=== PATIENT | female | born 2000 | race Hispanic/Latino ===

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

== ENCOUNTER → 2021-03-28 | Outpatient (CLI) | payer OTHER, SELFPAY ==
--- NOTE | 2021-03-28 15:49 | REP ---
INDICATION: R76.11 PPD POSITIVE COMPARISON: None. TECHNIQUE: PA and lateral. FINDINGS: The mediastinum and cardiac silhouette are normal. The lung do are clear and without acute consolidation, effusion, or pneumothorax. The skeletal structures are intact and normal. IMPRESSION: No acute cardiopulmonary process. <Electronically signed by Serafin Atwood > 03/28/21 [id number]
== END ==
LOC: M CLY 15:21
PROVIDERS: ATTEND Nurse Practitioner Family
DX: R76.11 Nonspecific reaction to tuberculin skin test without active tuberculosis (principal)